=== PATIENT | male | born 1975 | race Two or more races ===

== ENCOUNTER 2022-05-12 18:46 | Emergency (ER) | payer OTHER ==
[~2022-05-12] VITALS: Ht 182.9 cm; Wt 95.5 kg
[2022-05-12 18:47] VITALS: BP 128/77
[2022-05-12 20:53] VITALS: O2SAT 97
== END 2022-05-12 22:55 | disposition home or self-care (01) ==
LOC: M ED 18:46
DX: U07.1 COVID-19 (principal); I10 Essential (primary) hypertension